=== PATIENT | male | born 1940 | race Caucasian/White ===

== ENCOUNTER 2017-07-01 06:13 | Inpatient (IN) | payer MEDICARE, BC ==
[2017-07-01 06:28] LABS: #Basophils 0.1 thou/uL (0.0-0.2); #Eosinphils 0.3 thou/uL (0.0-0.7); #Lymphocytes 2.8 thou/uL (1.20-3.40); #Monocytes 0.8 thou/uL (0.11-0.59); #Neutrophils 4.3 thou/uL (1.40-6.50); %Eosinophils 4.2 % (0.0-10.0); %Lymphocytes 34.2 % (21.0-51.0); %Monocytes 9.3 % (0.0-10.0); %Neutrophils 51.3 % (42.0-75.0); Hemoglobin 14.3 g/dL (14.0-18.0); Mean Corpuscular HGB CONC 32.7 g/dL (32.0-36.0); Mean Corpuscular Hemoglobin 31.5 pg (27.0-31.0); Mean Corpuscular Volume 96.5 fl (80.0-94.0); Mean Platelet Volume 7.8 fL (7.4-10.4); Platelet Count 206 thou/uL (130-400); RBC Distribution Width 12.5 % (11.5-14.5); Red Blood Cell (RBC) Count 4.53 mill/uL (4.70-6.10); White Blood Cell (WBC) Count 8.3 thou/uL (4.8-10.8)
[2017-07-01 06:36] LABS: PTT 24.7 SEC (22.9-36.1); Prothrombin Time 13.1 SEC (12.0-14.7)
[2017-07-01 06:44] LABS: ALT (SGPT) 24 U/L (8-55); AST (SGOT) 28 U/L (5-34); Albumin 3.9 g/dL (3.4-4.8); Alkaline Phosphatase 69 U/L (40-150); Anion Gap 12 mmol/L (10-20); BUN (Urea Nitrogen) 28 mg/dL (8.4-25.7); Bilirubin, Total 0.4 mg/dL (0.2-1.2); Calc. Creatinine Clearance 0 mL/min (70-130); Calcium 9.4 mg/dL (7.8-10.44); Carbon Dioxide 23 mmol/L (23-31); Chloride 108 mmol/L (98-107); Estimated GFR-MDRD 55; Globulin 2.6 g/dL (2.4-3.5); Glucose 153 mg/dL (83-110); Potassium 3.6 mmol/L (3.5-5.1); Protein, Total 6.5 g/dL (5.8-8.1); Sodium 139 mmol/L (136-145)
[2017-07-01 06:48] LABS: CKMB 3.9 ng/mL (0-6.6); Troponin I Less than 0.010 ng/mL (< 0.028)
[2017-07-01] MEDS ORDERED: niCARdipine 20MG in NaCl 200 ML BAG IVPB PRN (07:05)
[2017-07-01] MEDS ORDERED: Labetalol HCl 100 MG/20 ML VIAL SLOW IVP PRN (07:05)
[2017-07-01] MEDS ORDERED: Ondansetron PF 4 MG/2 ML Vial IVP PRN (07:05)
[2017-07-01] MEDS ORDERED: Acetaminophen 650 MG Suppository PR PRN (07:08)
--- NOTE | 2017-07-01 08:19 | CT ---
PRELIMINARY REPORT/[facility]/EMERGENCY AFTER HOURS PROCEDURE: Addendum created by Navneet Ocasio DO on 07/01/2017 6:35 AM Central Time ([place] & [place]) THIS REPORT CONTAINS FINDINGS THAT MAY BE CRITICAL TO PATIENT CARE. The findings were verbally commun icated via telephone conference with Dr. Ruiz at 6:34 AM STEAM POWER PLANT OPERATOR on 07/01/2017. The findings were ackno wledged and understood. Neurosurgery had been consulted. Initial Report created on 07/01/2017 6:28 AM Central Time ([place] & [place]) EXAM: CT Head Without Intravenous Contrast CLINICAL HISTORY: 77 years old, male; Signs and symptoms; Alteration of consciousness and hemiplegia and hemiparesis; P atient HX: Left sided facial droop, pt went down approx 30 minutes ago. . HX of dementia TECHNIQUE: Axial computed tomography images of the head/brain without intravenous contrast. COMPARISON: No relevant prior studies available. FINDINGS: Brain: There is a 5 x 5.5 cm acute intraparenchymal hemorrhage within the right frontal lobe, centere d near the frontal operculum of the insular ribbon. There is partial right hemispheric sulcal effacem ent. There is 3 mm leftward midline shift. There is no flores herniation. There are severe presumed chronic small vessel ischemic changes in the white matter. Ventricles: Unremarkable. No ventriculomegaly. Bones/joints: Unremarkable. No acute fracture. Soft tissues: Unremarkable. Sinuses: Unremarkable as visualized. No acute sinusitis. Mastoid air cells: Unremarkable as visualized. No mastoid effusion. IMPRESSION: 1. There is a 5 x 5.5 cm acute intraparenchymal hemorrhage within the right frontal lobe, centered ne ar the frontal operculum of the insular ribbon. 2. There is partial right hemispheric sulcal effacement. There is 3 mm leftward midline shift. There is no flores herniation. This interpretation was based upon the receipt of 65 image(s). Thank you for allowing us to participate in the care of your patient. Dictated and Authenticated by: Navneet Ocasio DO 07/01/2017 6:28 AM Central Time ([place] & [place]) FINAL REPORT CT BRAIN WITHOUT CONTRAST: I agree with the preliminary report given by Dr. Navneet Ocasio of [facility]. POS: [facility]
--- NOTE | 2017-07-01 08:39 | HP ---
ATTENDING PHYSICIAN: Dr. Anthony Maciel HISTORY OF PRESENT ILLNESS: The patient is a 77-year-old male with past medical history of dementia who presented to the ER per EMS after being found down by his this morning. She reports that they sleep in separate bedrooms, but she heard a noise at approximately 5:30 a.m. when she went to check on the patient. She found the patient lying between the bed and dresser and noticed him to have acute left side weakness and facial droop. Therefore, she contacted EMS who brought the patient to the ER for further evaluation. CT head was done on arrival and was notable for acute right frontal intracranial hemorrhage with surrounding edema and slight midline shift. I am seeing the patient at the bedside in ER 1. He is awake. He answers yes or no questions. He has no eye opening, he is noted to have a right-sided gaze deficit, left left-sided facial droop and left-sided flaccid paralysis of the left upper extremity and left lower extremity. His family reports that he does take a baby aspirin daily. They have not been able to provide us with the medication list as of yet. He is DNR; however, they are unsure about his intubation wishes. PAST MEDICAL HISTORY: Dementia. PAST SURGICAL HISTORY: Appendectomy, hernia repair. SOCIAL HISTORY: The patient is , he lives at home. He does not smoke, drink or use any drugs. ALLERGIES: He is allergic to HYDROCODONE and PENICILLIN. REVIEW OF SYSTEMS: Per HPI. PHYSICAL EXAMINATION: VITAL SIGNS: Blood pressure is 153/70, pulse 73, respirations rate is 16, temperature is 97.5. The patient is 95% on room air. GENERAL: He is awake. He is answering yes or no questions. HEENT: Normocephalic, atraumatic. Left-sided facial droop. EYES: Pupils are equal and reactive to light. He has a right-sided gaze deficit. ENT: OP is pink, intact, moist. He has clear speech. NECK: Nontender to palpation. Free active range of motion. CARDIOVASCULAR: Regular rate and rhythm. LUNGS: The patient is breathing comfortable with symmetric chest expansion. No evidences dyspnea. MUSCULOSKELETAL: Peripheral pulses are equal and symmetric. No obvious deformities. NEUROLOGIC: The patient answers yes or no questions. He is unable to tell me his name. When asked if he is at the hospital, he answers no. Left side facial droop is appreciated. He has a right-sided gaze deficit, left-sided flaccid paralysis of the left upper extremity and left lower extremity is present. The patient is unable to complete [id number] or [id number]. ASSESSMENT AND PLAN: The patient appears to have acute right frontal temporal intracranial hemorrhage with surrounding edema and a small amount of midline shift from right to left. This is likely hypertensive in origin. I will plan to admit to the ICU with close monitoring and q.1 neuro checks. Head of the bed will be elevated to 30 degrees. The patient's family does report that he takes at home baby aspirin daily and this will be discontinued. Blood pressure will be controlled with a goal of systolic blood pressure less than 150. A consult to the Hospitalist has been placed for assistance in medical management. I have discussed this plan with Dr. Maciel who is in agreement.. JEANETTE
[2017-07-01 10:12] VITALS: BMI 23.5
--- NOTE | 2017-07-01 10:36 | MRI ---
MRA OF THE [place] AND VERTEBRAL BASILAR SYSTEM WITH 3D RECONSTRUCTIONS: Date: 07-01-17 History: Intracranial hemorrhage. Technique: 3D [id number]-ftedwt images of the [place] and vertebral basilar system are obtained . 3D reconstruction images are also provided. Comparison: Post contrast MRA of the neck also obtained on this date. FINDINGS: The distal vertebral arteries are not well seen on this exam. However, on MRA of the neck, the left v ertebral artery is dominant and patent. Basilar artery is also patent on that exam. The distal right vertebral artery is very small in caliber and appears to terminate in PICA. The bilateral middle cere bral and anterior cerebral arteries are patent. There is no focal stenosis or branch occlusion seen o n this exam. There are type origins of the posterior cerebral arteries bilaterally which is a n ormal variant. Basilar artery is small in caliber but on the posterior contrast enhanced MRA of the n radha which includes the basilar artery, basilar artery is widely patent. The right frontal lobe intraparenchymal hematoma is partially visualized on this exam. This would be better evaluated on MRI of the brain, also obtained on this date. Please see that exam for further de tails. IMPRESSION: 1. No focal stenosis or branch occlusion is seen involving the [place]. 2. The basilar artery appears small in caliber although it is better visualized on the post enhanced CTA of the neck, also obtained on this date and appears widely patent. The artery is generally small in caliber and likely related to type origins of the bilateral posterior cerebral arteries. 3. Right vertebral artery terminates in PICA which is a normal variant. The left vertebral artery is patent, 4. Right frontal lobe intraparenchymal hematoma incompletely imaged. This is better evaluated on MRI of the brain, also obtained on this date. Please see that report for further details. POS: [facility]
[2017-07-01] MEDS: Sodium Chloride 0.9% 1,000 ML IV SCH ×2 (11:18→20:47)
--- NOTE | 2017-07-01 11:39 | MRI ---
PRE AND POST CONTRAST ENHANCED MRI OF THE BRAIN: Date: 07-01-17 Comparison: Previous CT brain, 07-01-17. Technique: Multiplanar, multisequence pre and post contrast enhanced MRI images of the brain obtained . FINDINGS: Images demonstrate multiple areas of decreased signal on the gradient echo sequences too numerous to count, involving the supra and infratentorial structures bilaterally and involving all of the lobes o f the brain. 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 These lesions are too numerous to count and demonstrates multiple areas of old hemorrhage. There is a large area of more acute hemorrhage with 3D measurements measuring 3.6 x 4.6 x 3.2 cm in t he right posterior frontal lobe. No significant enhancement is seen within this. There appears to be adjacent areas of vascular enhancement along the superior margin of this intracranial area of hemorrh age. 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 No definite evidence of areas of parenchymal enhancement seen outside of the vascular enhancement. There does appear to be some midline shift with some compression of the right lateral ventricle. Ther e is minimal right to left shift measuring approximately 3 mm. IMPRESSION: 1. Extensive areas of chronic tiny hemorrhages compatible with multiple cavernous malformations. 2. Areas of heterogeneous signal intensity without evidence of significant enhancement compatible wit h area of fairly large intraparenchymal hemorrhage in the right posterior frontal lobe. 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 POS: [facility]
--- NOTE | 2017-07-01 11:43 | MRI ---
MRA NECK WITH IV CONTRAST AND 3D RECONSTRUCTION: Date: 07-01-17 History: Left frontal lobe intracranial hemorrhage with right frontal lobe parenchymal hematoma noted on CT exam. FINDINGS: There is a normal arrangement of the great vessels at the aortic arch which are widely patent. The bi lateral subclavian arteries are patent. The innominate artery as well as bilateral common carotid art eries are patent. The bilateral internal carotid arteries are patent with mild atherosclerotic irregu larity involving the proximal right internal carotid artery and to a lesser extent involving the prox imal left internal carotid artery. There is less than 50% maximal stenosis involving the bilateral in ternal carotid arteries based on NASCET criteria. The origin of the right vertebral artery is not visualized, but the remainder of the right vertebral artery is patent. The left vertebral artery does appear to terminate in PICA. The left vertebral jacquelyn ry is patent and the basilar artery also appears patent. There is type origin of the bilateral posterior cerebral arteries. The bilateral middle cerebra l arteries where visualized appear patent. [place] is better described on MRA of the brain, also obtained on this date. See that report for further details. IMPRESSION: 1. Mild atherosclerotic narrowing involving the proximal internal carotid arteries bilaterally, but t here is less than 50% maximal stenosis involving the bilateral internal carotid arteries according to NASCET criteria. POS: [facility]
[2017-07-01] MEDS ORDERED: Gadobenate Dimeglumine 529 MG/1 ML (20ML VIAL) ONE (12:51)
[2017-07-01] MEDS: Famotidine/PF 20 mg/2ml Vial SLOW IVP SCH (20:47)
--- NOTE | 2017-07-02 01:17 | CON ---
DATE OF CONSULTATION: 07/01/2017 HISTORY OF PRESENT ILLNESS: Mr. Nam is a very pleasant 77-year-old male. The history was obtained from his . Apparently, he was found down and brought to the hospital. He has had a right thalamic bleed. He is paretic on the left side. He has been admitted to Critical Care Unit. Prior to this admission, she says he had mild dementia, but drove to the cafe for coffee every morning. He did no long-distance driving. As long as he stayed between the house and the cafe, she says he did fine. He has actually lost 2 friends to bleeding strokes and has told her multiple times that he absolutely never wanted to be put on a ventilator or have a feeding tube placed. He has actually been pretty healthy up until this point and his says he was doing great yesterday. He has been for 57 years. PAST MEDICAL HISTORY: Remarkable mainly for herniorrhaphy and an appendectomy. SOCIAL HISTORY: He is a nonsmoker and nondrinker. FAMILY HISTORY: Noncontributory ALLERGIES: He reports allergies to HYDROCODONE and PENICILLIN. REVIEW OF SYSTEMS: Not accurately obtainable, although his says that there are no other symptoms other than the above. He had no fever leading up to this. He has had no history of dramatically elevated blood pressure leading up to this. He was only on a baby aspirin a day prior to this. PHYSICAL EXAMINATION: GENERAL: He was arousable, but somnolent. VITAL SIGNS: His temperature was 99.5, heart rate was 104, respiratory rate was 18, oximetry was 95 on room air, blood pressure was 149/71. HEENT: Pupils were equal and reactive. Extraocular movements were full. Sclerae is anicteric. NECK: Supple. He was hemiparetic on the left. LUNGS: Clear. HEART: Regular rhythm. S1 and S2 are normal. I do not hear a murmur. ABDOMEN: Soft and nontender without any guarding or masses. EXTREMITIES: With asymmetry. LABORATORY DATA: White count 8.3, hemoglobin 14.3, platelets 206. Sodium 139, potassium 3.6, chloride 108, bicarbonate 23, BUN 28, creatinine 1.26, glucose 153. IMPRESSION: Hemorrhagic cerebrovascular accident. His is adamant that he be a do not resuscitate patient, never have a feeding tube placed, and never go on mechanical ventilation. We discussed the issues of not feeding him since he would not be able to swallow and she does not want him to have a Dobbhoff tube. There is no surgical intervention planned. In my opinion, he is stable to move out of the Critical Care Unit. This is a 70-minute consult with greater than 50% of the time was spent on the unit coordinating care and also been meeting with family. I also spent about 20 minutes discussing future plans of care and I have explained to her that there would not be any way that she can care for him at home. So, if he stabilizes in the next week, we need to consider placement. JEANETTE
--- NOTE | 2017-07-02 05:23 | PDOC.EVN ---
Event Note - Event Note Event Note: Advanced Care Planning with: patient's , daughter, at patient's bedside dx: R thalamic bleed/ hemorrhagic CVA Summary: Discussed with patient's family at bedside the diagnosis above and its overall prognosis. They state they wish for him to be comfortable because it is what he would have wanted. They decline all forms of parenteral nutrition and are considering cessation of IVF with transition to comfort care measures only. He is already a DNR, DNI and they are able to complete appropriate teachback regarding his prognosis from their conversation earlier with Dr. Holly. Discussed palliative care consult and they are amenable to both palliative care consultation and hospice initiation. Greater than 15 minutes spent addressing advanced care planning.
--- NOTE | 2017-07-02 08:09 | CON ---
DATE OF CONSULTATION: 07/02/2017 REASON FOR CONSULTATION: Medical management. HISTORY OF PRESENT ILLNESS: This is a 77-year-old gentleman who was brought in after being found mindy n at home by his . It appears that the etiology has been determined as a right-sided thalamic st roke. He has been seen and managed by Neurosurgery who is his primary team and has consulted us for medical management. At the time of my evaluation at bedside, the patient does not awake to voice or mild pain. He does a ppear to be protecting his airway. This appears to be progression from his initial history and physi warner. After discussion with the patient's family at bedside, it appears that he really would like to discuss more his prognosis and options for palliative course of care. The patient is unable to provide any of his own history and this is obtained from reviewing the alessandroabelardo nt's medical record and with discussion with the patient's and daughter at bedside. REVIEW OF SYSTEMS: Unable to obtain as per above. PAST MEDICAL HISTORY: 1. Notable for dementia. 2. Status post appendectomy. HOME MEDICATIONS: Aspirin, some vitamins and atorvastatin 40 mg p.o. q.p.m. ALLERGIES: Include HYDROCODONE and PENICILLIN. FAMILY HISTORY: No known family or prior stroke. SOCIAL HISTORY: No alcohol, no tobacco, no illicit drug use. His precision decision makers include his and daughter who are making decisions concurrently at bedside. PHYSICAL EXAMINATION: GENERAL: The patient is lying in the hospital bed, does not appear to be in any overt distress. HEENT: Normocephalic, atraumatic. HEENT: Slightly dry mucous membrane. CARDIOVASCULAR: S1 and S2 with 2+ bilateral upper extremities, no pitting pedal edema. RESPIRATORY: Limited anterior examination. LUNGS: Clear to auscultation. Breath sounds bilaterally without wheezes, rales or rhonchi. ABDOMEN: Positive bowel sounds. EXTREMITIES: Nontender to palpation. LABORATORY DATA AND IMAGING: WBC 8.3, hemoglobin 14.3, hematocrit 43.7, platelet 206. INR 1.0, sodi um 139, potassium 3.6, chloride 108, bicarbonate 23, BUN 28, creatinine 1.26, glucose 153, calcium 9. 4, total bilirubin 0.4, AST 28, ALT 24, alkaline phosphatase 69, troponin less than 0.01, total prote in 6.5, albumin 3.9. On 07/01/2017, CT of the brain without contrast reveals a 5 x 5.5 cm acute intr aparenchymal hemorrhage within the right frontal lobe centered near the frontal operculum of the insu lar ribbon. There is partial right hemispheric sulcal effacement. There is 3 mm leftward midline sh ift. There is no white herniation. Noted severe presumed chronic small vessel ischemic changes in t he white matter. Ventricles unremarkable. No ventriculomegaly. On 07/01/2017, brain MRA showed no focal stenosis or branch occlusion seen involving the [place]. Basal artery appears small i n caliber, although it is better visualized on the posterior head. CTA of the neck also obtained on this stage appears widely patent. The artery is generally small in caliber and likely related to fet al type origin with bilateral posterior cerebral arteries. Right vertebral artery terminates in the PICA which is a normal variant. The left vertebral artery is patent. Right frontal lobe intraparenc hymal hematoma incompletely imaged. This is better evaluated on MRI of the brain also obtained on date. On 07/01/2017, brain MRI. Impression: Extensive areas of chronic tiny hemorrhages compatible with m ultiple cavernous malformations. 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 There appears to be areas of adjacent vascular enhancement compatible with possibl e arteriovenous malformation. ASSESSMENT AND PLAN: This is a 77-year-old male who presents status post right-sided thalamic hemorr wei and one cerebrovascular accident, hemorrhagic type. Patient is primarily on the Neurosurgical S ervice. It appears that the patient has been discussed prognosis extensively with his primary provid er team including Neurosurgical Service and Critical Care Team. At this point in time, patient's fam george wishes to proceed with a palliative approach. The patient is currently already a DO NOT RESUSCIT ATE, DO NOT INTUBATE, and no further surgical procedures. Parenteral "feeding tube" options have bee n discussed with the patient's family and they have declined these. The patient's family is currentl y contemplating whether or not to proceed with completely comfort care only approach as well since ey feel this would be most in alignment with the patient's own wishes. They have declined inspiratio nal consult as the patient's own gnosticism members and sisal picker have already visited with him. Thank you for asking me to consult for this patient. We will continue to follow.
[2017-07-02 09:34] VITALS: BP 167/86; TEMP 98.4
[2017-07-02] MEDS: Famotidine/PF 20 mg/2ml Vial SLOW IVP SCH (10:19)
[2017-07-02] MEDS: Sodium Chloride 0.9% 1,000 ML IV SCH (10:20)
--- NOTE | 2017-07-02 15:23 | PRG ---
DATE OF SERVICE: 07/02/2017 SUBJECTIVE: Mr. Nam has been unresponsive since moving out of the Critical Care Unit. All the fami ly was sitting at the bedside. OBJECTIVE: He is afebrile, heart rate 84, respiratory rates in the 30s. He is on room air with sats in the 90s, blood pressure 167/86. Lungs, heart, and abdomen are unchanged. His wants his IV fluids stopped, to be transferred to inpatient hospice. I agree with their tonia n and support their decisions completely. They state that he would not want to be living like this a nd he has very limited chance for any type of meaningful recovery. We will sign off.
[2017-07-02] MEDS ORDERED: Lorazepam 2 MG/ML VIAL SLOW IVP PRN (15:39)
--- NOTE | 2017-07-03 15:39 | DIS ---
NEUROSURGEON: Dr. Anthony Maciel, PULMONARY AND CRITICAL CARE TELEPHONE INSTALLER: Dr. Holly DISCHARGE DIAGNOSES: Right-sided thalamic hemorrhage. BRIEF SUMMARY OF HOSPITAL COURSE: This is a 72-year-old male with a notable history for dementia who presented initially after being found "down" at home by his . Please see the original history a nd physical for full details. The patient was seen by Neurosurgery was initially [facility] in [facility] and seen by our pulmonary rn correctional as well in consultation. The patient was found to have a right-sided thalamic hemorrhagic type stroke. Unfortunately, post-stroke, his prognosis wa s extremely poor. After multiple conversations with the patient and his family, the decision was mad e to initiate palliative care proceed to hospice and comfort care if needed. The patient's chronic issues were grossly unchanged. CONSULTATIONS: 1. Neurosurgery. 2. Pulmonary Critical Care. Home medications have been minimized. The patient is discharged with comfort providing a regimen of medications. DISCHARGE CONDITION: At the time of discharge, the patient's prognosis is very poor. The patient is being discharged to palliative care. Hospice and comfort care are anticipated to follow. Greater than 30 minutes spent coordinating discharge with the patient. The patient was seen and exam ined by myself on the day of discharge. Thank you for allowing me to care for the patient.
--- NOTE | 2017-07-05 15:33 | EKG ---
Test Reason : Blood Pressure : / mmHG Vent. Rate : 082 BPM Atrial Rate : 082 BPM P-R Int : 000 ms QRS Dur : 072 ms QT Int : 374 ms P-R-T Axes : 000 017 013 degrees QTc Int : 436 ms Accelerated Junctional rhythm Abnormal ECG Confirmed by YARA PANIAGUA ([id number]), film and video editor MADELEINE NEAL ([id number]) on 07/05/2017 3:33:14 PM Referred By: Confirmed By:YARA PANIAGUA
== END 2017-07-02 17:59 | disposition home or self-care (01) | DRG 64 ==
LOC: ERS 06:13 → CCU 07:36 → T4-A 14:44
PROVIDERS: ADMIT Neurological Surgery; ATTEND Neurological Surgery
DX: I62.9 Nontraumatic intracranial hemorrhage, unspecified (principal); G93.6 Cerebral edema; G81.94 Hemiplegia, unspecified affecting left nondominant side; F03.90 Unspecified dementia, unspecified severity, without behavioral disturbance, psychotic disturbance, mood disturbance, and anxiety; R29.810 Facial weakness; Z51.5 Encounter for palliative care; Z66 Do not resuscitate; Z88.5 Allergy status to narcotic agent; Z88.0 Allergy status to penicillin; Z79.82 Long term (current) use of aspirin; Z79.899 Other long term (current) drug therapy
CPT/HCPCS: 51702; 70450; 70544; 70549; 70553; 80053; 82553; 84484; 85025; 85610; 85730; 93005; A9579; G8996-GN-CN; G8997-GN-CK; J2060; J2270; S0028